=== PATIENT | female | born 1985 | race Caucasian/White ===

== ENCOUNTER 2016-11-23 16:26 | Observation (INO) | payer OTHER ==
[~2016-11-23] VITALS: Ht 149.9 cm; Wt 38.3 kg
[~2016-11-23 16:26] MED LIST: AMB10 PO; ASPEC325 PO; AZAT50TA17 PO; CLC100 PO; CPR500 PO; ENTOCORT PO; FRC PO; HUMIRA SC; HYD10 PO; MULT-506 PO; NORT50CA PO; OXYC-57 PO; OXYSR10 PO
--- NOTE | 2016-11-23 17:13 | EMERGENCY ROOM VISIT NOTE ---
ED Visit Note First contact with patient: 16:45 Patient evaluated with resident. 31 year presented to the emergency room for generalized chest pain, nausea, shortness of breath progressively worse for several weeks after starting a new antidepressant for her fibromyalgia. She is also noted to be on multiple other medications including nortriptyline for migraines. She does not report frequent or recurrent migraines at this juncture the last time her migraine medications were reportedly assessed for back when she was in high school over 10 years ago. She was given normal saline hydration and hypokalemia identified 2.8. Potassium subsequently replaced and CTA study was negative for PE. I am concerned that patient's medications may be interacting or potentially causing the rhythm disturbance. Admission arranged with [facility] hospitalist at 8: 30pm.
[2016-11-23] MEDS ORDERED: SODIUM CHLORIDE 0.9% 1000ML 1,000 ML IV SCH (17:15)
[2016-11-23] MEDS ORDERED: ADENOSINE IV SOLN 3 MG/ML 2 ML VIAL IV STA (17:23)
[2016-11-23] MEDS ORDERED: OPTIRAY 320 IV PRN (17:30)
[2016-11-23] MEDS ORDERED: BUPR75TA20 PO (17:33)
[2016-11-23] MEDS ORDERED: LIDO2SOL19 PO (17:33)
[2016-11-23] MEDS ORDERED: EFF75 PO (17:33)
[2016-11-23] MEDS ORDERED: ONDA4TAB10 SL (17:33)
[2016-11-23] MEDS ORDERED: FRCT/ PO (17:33)
[2016-11-23] MEDS ORDERED: ATV/1 PO (17:33)
[2016-11-23 17:45] LABS: EOS % 1.9 %; HEMATOCRIT 32.4 % (37-47); IG% 0.4 %; LYMPH % 30.2 %; LYMPH ABS # 0.81 K/uL (1.2-3.4); MEAN CELL VOLUME 112.5 fL (80-100); MEAN CORPUSCULAR HEMOGLOBIN 39.6 pg (25-34); MEAN CORPUSCULAR HGB CONC 35.2 g/dl (32-36); MEAN PLATELET VOLUME 9.2 fL (7.4-10.4); MONO % 4.9 %; NEUT % 62.6 %; PLATELET COUNT 507 K/uL (130-400); RED BLOOD COUNT 2.88 M/uL (4.2-5.4); WHITE BLOOD COUNT 2.68 K/uL (4.8-10.8)
[2016-11-23] MEDS ORDERED: HYDR5TAB57 PO ×2 (17:46)
[2016-11-23] MEDS ORDERED: NORT75CA PO (17:46)
[2016-11-23] MEDS ORDERED: BCPILLS PO (17:46)
[2016-11-23] MEDS ORDERED: CYAN100020 PO (17:46)
[2016-11-23] MEDS ORDERED: FLUC150T PO (17:46)
[2016-11-23] MEDS ORDERED: FOLI1TAB7 PO (17:46)
[2016-11-23] MEDS ORDERED: OXYC-164 PO (17:46)
[2016-11-23] MEDS ORDERED: FLUC10SU PO (17:46)
[2016-11-23] MEDS ORDERED: GABA-113 PO (17:46)
[2016-11-23] MEDS ORDERED: MAGN400T6 PO (17:46)
[2016-11-23] MEDS ORDERED: ZOLP10TA6 PO (17:46)
[2016-11-23] MEDS ORDERED: VALA500T60 PO (17:47)
[2016-11-23] MEDS ORDERED: POTA20TA13 PO (17:49)
[2016-11-23 17:53] LABS: INR 1.1 (0.9-1.1); PARTIAL THROMBOPLASTIN RATIO 0.9; PROTHROMBIN TIME (PATIENT) 11.5 SECONDS (9.0-12.0)
[2016-11-23] MEDS ORDERED: OMEP40CA PO (17:53)
[2016-11-23] MEDS ORDERED: DOCU-94 PO (17:53)
[2016-11-23] MEDS ORDERED: ADAL1KIT SC (17:53)
[2016-11-23] MEDS ORDERED: FLUD0.1T10 PO (17:54)
--- NOTE | 2016-11-23 18:04 | DIAGNOSTIC IMAGING REPORT ---
CHEST ONE VIEW PORTABLE HISTORY: Atypical chest pain, dyspnea COMPARISON: None. FINDINGS: The lungs are clear. Cardiac silhouette is normal in size. No pleural effusions. No pneumothorax. IMPRESSION: No acute process. Electronically signed by: Dusty Rouse M.D. 11/23/2016 6:02 PM Dictated Date/Time: 11/23/2016 6:01 PM
[2016-11-23 18:08] LABS: ALT/SGPT < 6 U/L (12-78); AST/SGOT 6 U/L (15-37); BLOOD UREA NITROGEN 4 mg/dl (7-18); BUN/CREATININE RATIO 6.1 (10-20); CALCIUM 8.2 mg/dl (8.5-10.1); CARBON DIOXIDE 30 mmol/L (21-32); CHLORIDE 104 mmol/L (98-107); CREATININE 0.68 mg/dl (0.60-1.20); GLUCOSE 84 mg/dl (70-99); POTASSIUM 2.8 mmol/L (3.5-5.1); SODIUM 142 mmol/L (136-145)
[2016-11-23 18:14] LABS: COMPLETE YES; TEAR DROP CELLS 1+
[2016-11-23 18:21] LABS: MAGNESIUM 2.1 mg/dl (1.8-2.4); THYROID STIMULATING HORMONE 0.769 uIu/ml (0.300-4.500)
[2016-11-23 18:25] LABS: ALB/GLOB RATIO 0.9 (0.9-2); ALKALINE PHOSPHATASE 59 U/L (45-117)
--- NOTE | 2016-11-23 18:28 | EMERGENCY ROOM VISIT NOTE ---
History First contact with patient: 16:46 Chief Complaint: CHEST PAIN Stated Complaint: CHEST PAIN Nursing Triage Summary: Chest pain, headaches for a couple weeks. Pt believes it is medicine related, started cymbalta, zoloft, and effexor a few weeks ago. Pt currently only taking wellbutrin and effexor. SOB. Feels like her heart is beating out of her chest. History of Present Illness The patient is a 31 year old female who presents to the Emergency Room with complaints of chest pain The pain started 2 weeks ago. It is left sided pain, usually felt as a pressure , but with exertion, the pain becomes sharp. There is some radiation to the left neck and associated symptoms include heart pounding, dyspnea, and weakness. Symptoms are alleviated with rest/stillness, or lying flat. In addition to exertion, patient claims pain is exacerbated on chest palpation, effortful bowel movement. It is not impacted by eating. There has been long standing nausea, but no associated diaphoresis or irregular heart beat noted. The course of chest pain has not progressed over the two weeks. 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 Patient's mother is concerned that the patient's chest pain related to medication switches Switched from Cymbalta to Zoloft (made her aggressive and combative) to Wellbutrin with Effexor added before [place] Patient has had long standing headaches. Diarrhea has been ongoing for 4 weeks, with blood in stool from previous rectal bleeding (large volume at previous admission, although no OR bleeding ween within the last week) No fever on URI symptoms. Never smoker, on Jolessa, no history of clots in lungs or legs, no long haul flights or long commutes. Review of Systems See HPI for pertinent positives and negatives. A total of ten systems were reviewed and were otherwise negative. 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 Surgical Problems: (1) History of bowel resection Social History Smoking Status: Never Smoker Current/Historical Medications Scheduled Adalimumab (Humira), 40 MG SC Q2WEEK Azathioprine (Imuran), 100 MG PO DAILY Bupropion (Wellbutrin), 75 MG PO BID Fluconazole (Diflucan), 150 MG PO MONTHLY Fludrocortisone Acetate (Florinef), 0.1 MG PO DAILY Folic Acid (Folvite), 0.5 MG PO DAILY Gabapentin (Neurontin), 300 MG PO DAILY Gabapentin (Neurontin), 600 MG PO HS Hydrocortisone (Cortef), 20 MG PO QAM Hydrocortisone (Cortef), 10 MG PO AFTERNOON Levonorgestrel & Eth Estradiol (Levora 0.-), 1 TAB PO DAILY Magnesium Oxide (Mag-Ox), 400 MG PO DAILY Multivitamin (Multivitamin), 1 TAB PO DAILY Nortriptyline Hcl (Pamelor), 75 MG PO HS Omeprazole (Prilosec), 40 MG PO DAILY Potassium Chloride Microencaps (Potassium Chloride Er), 20 MEQ PO DAILY Valacyclovir (Valtrex), 500 MG PO DAILY Venlafaxine Hcl (Effexor), 75 MG PO DAILY Scheduled PRN Acetamin/Butalbital/Caffeine (Fioricet), 2 TABS PO Q6H PRN for Pain Docusate Sodium (Colace), 100 MG PO UD PRN for Constipation Lidocaine Hcl (Mouth-Throat) (Lidocaine Viscous), 10 ML PO UD PRN for Pain Lorazepam (Ativan), 1 MG PO DAILY PRN for Anxiety Ondasetron Odt (Zofran Odt), 4 MG SL Q8 PRN for Nausea Oxycodone/Acetaminophen 5MG/325MG (Percocet 5MG/325MG), 1 TAB PO Q4H PRN for Moderate Pain Zolpidem Tartrate (Zolpidem Tartrate), 10 MG PO HS PRN for Sleep Allergies Coded Allergies: Prochlorperazine (Verified Adverse Reaction, Intermediate, aggressive behavior, 09/15/11) Antihistamines, Loratadine-type (Verified Adverse Reaction, PT BECOMES AGGRESSIVE, 09/15/11) Diphenhydramine (Verified Adverse Reaction, PT BECOMES AGGRESSIVE, 09/15/11 ) Promethazine (Verified Adverse Reaction, PT BECOMES AGGRESSIVE, 09/15/11) Physical Exam Vital Signs Date Time Temp Pulse Resp B/P Pulse Ox O2 Delivery O2 Flow Rate FiO2 11/23/16 20:49 126 11/23/16 20:03 37.1 137 17 108/73 100 11/23/16 16:47 140 11/23/16 16:35 100 Room Air 11/23/16 16:32 36.8 151 18 105/68 100 Room Air Physical Exam GENERAL: alert, anxious appearing, thin, sitting in bed, no acute distress, non- toxic HEAD: Normocephalic, atraumatic. EYES: PERRL, EOMI, normal conjunctiva OROPHARYNX: no exudate, no erythema, lips, buccal mucosa, and tongue normal and mucous membranes are dry NECK: supple, no nuchal rigidity, no adenopathy, non-tender LUNGS: Clear to auscultation. Normal chest wall mechanics, good air entry. No crepitations, crackles, or wheezes HEART: tachycardiac, regular rhythm, S1 normal and S2 normal, no murmurs, CHEST: Tenderness on chest palpation ABDOMEN: abdomen soft, non-tender, normo-active bowel sounds, no masses, no rebound or guarding. BACK: Back is symmetrical on inspection, no deformities, no midline tenderness, no CVA tenderness. SKIN: Warm, pink, dry. No erythema, rashes, or bruising. EXTREMITIES: Grossly normal. Moving all 4 limbs, strength 5/5. No pitting edema. Calves non tender. NEURO: Alert, Ox3. No focal deficits. Normal sensorium, cranial nerves II-XII grossly intact, normal speech. PSYCH: Mood and affect appropriate. Medical Decision & Procedures ER Provider Diagnostic Interpretation: CHEST ONE VIEW PORTABLE HISTORY: Atypical chest pain, dyspnea COMPARISON: None. FINDINGS: The lungs are clear. Cardiac silhouette is normal in size. No pleural effusions. No pneumothorax. IMPRESSION: No acute process. CHEST CTA for PULMONARY ARTERIES CT DOSE: 178.08 mGy.cm HISTORY: Atypical chest pain. Dyspnea. TECHNIQUE: Multiaxial CT images of the chest were performed following the intravenous administration of contrast to evaluate the pulmonary arteries. Maximal intensity projection images were also obtained. COMPARISON STUDY: Chest 11/23/2016. FINDINGS: There is a normal caliber thoracic aorta with no evidence for dissection. There is no evidence for pulmonary embolus. No pleural effusions. No pneumothorax. The liver and spleen are unremarkable. No mediastinal or hilar lymphadenopathy. The central airways are patent. The lungs are clear. IMPRESSION: No evidence for pulmonary embolus. Laboratory Results Test 11/23/16 00:00 11/23/16 17:25 Urine Opiates Screen NEG (NEG) Urine Methadone, Qualitative NEG (NEG) Urine Barbiturates POS (NEG) Urine Phencyclidine (PCP) Level NEG (NEG) Ur Amphetamine/Methamphetamine NEG (NEG) MDMA (Ecstasy) Screen NEG (NEG) Urine Benzodiazepines Screen NEG (NEG) Urine Cocaine Metabolite NEG (NEG) Urine Marijuana (THC) NEG (NEG) Immature Granulocyte % (Auto) 0.4 % White Blood Count 2.68 K/uL (4.8-10.8) Red Blood Count 2.88 M/uL (4.2-5.4) Hemoglobin 11.4 g/dL (12.0-16.0) Hematocrit 32.4 % (37-47) Mean Corpuscular Volume 112.5 fL (80-100) Mean Corpuscular Hemoglobin 39.6 pg (25-34) Mean Corpuscular Hemoglobin Concent 35.2 g/dl (32-36) Platelet Count 507 K/uL (130-400) Mean Platelet Volume 9.2 fL (7.4-10.4) Neutrophils (%) (Auto) 62.6 % Lymphocytes (%) (Auto) 30.2 % Monocytes (%) (Auto) 4.9 % Eosinophils (%) (Auto) 1.9 % Basophils (%) (Auto) 0.0 % Neutrophils # (Auto) 1.68 K/uL (1.4-6.5) Lymphocytes # (Auto) 0.81 K/uL (1.2-3.4) Monocytes # (Auto) 0.13 K/uL (0.11-0.59) Eosinophils # (Auto) 0.05 K/uL (0-0.5) Basophils # (Auto) 0.00 K/uL (0-0.2) Immature Granulocyte # (Auto) 0.01 K/uL (0.00-0.02) Macrocytosis PRESENT Tear Drop Cells 1+ Prothrombin Time 11.5 SECONDS (9.0-12.0) Prothromb Time International Ratio 1.1 (0.9-1.1) Activated Partial Thromboplast Time 24.0 SECONDS (21.0-31.0) Partial Thromboplastin Ratio 0.9 Magnesium Level 2.1 mg/dl (1.8-2.4) Total Bilirubin 0.2 mg/dl (0.2-1) Aspartate Amino Transf (AST/SGOT) 6 U/L (15-37) Alanine Aminotransferase (ALT/SGPT) < 6 U/L (12-78) Alkaline Phosphatase 59 U/L (45-117) Troponin I < 0.015 ng/ml (0-0.045) Total Protein 7.0 gm/dl (6.4-8.2) Albumin 3.4 gm/dl (3.4-5.0) Globulin 3.6 gm/dl (2.5-4.0) Albumin/Globulin Ratio 0.9 (0.9-2) Thyroid Stimulating Hormone (TSH) 0.769 uIu/ml (0.300-4.500) Medications Administered Medications (Trade) Dose Ordered Sig/Sivakumar Route Start Time Stop Time Status Last Admin Dose Admin Sodium Chloride (Nss 1000ml) 1,000 ml @ 500 mls/hr Q2H IV 11/23/16 17:15 11/23/16 22:25 DC 11/23/16 17:55 500 MLS/HR Potassium Chloride (Kcl 10 Meq / Wtr) 40 meq NOW STAT IV 11/23/16 18:37 11/23/16 18:38 DC 11/23/16 19:00 40 MEQ Potassium Chloride 20 meq 20 meq NOW STAT PO 11/23/16 18:37 11/23/16 18:38 DC 11/23/16 18:59 20 MEQ Sodium Chloride (Nss 1000ml) 1,000 ml @ 100 mls/hr Q10H IV 11/23/16 20:45 11/24/16 11:58 DC 11/24/16 08:35 100 MLS/HR Ondansetron HCl (Zofran Inj) 4 mg Q6H PRN IV 11/23/16 20:45 12/23/16 20:44 11/23/16 21:04 4 MG ECG Indication: chest pain Rate (beats per minute): 146 Rhythm: SVT Findings: T-wave inversion (Inferior), prolonged QT Comparison ECG Date: no prior available Medical Decision 31 year old female presented with chest The patient was evaluated in room A11. A complete history and physical exam was performed. Differential diagnoses includes but is not limited to acute coronary syndrome, myocardial infarction, pericarditis, pulmonary embolus, aortic dissection, pneumonia, pneumothorax, musculoskeletal, shingles, esophageal. EKG showed supraventricular tachycardia, with the t wave inversions in the inferolateral leads. Lab work was performed. CBC showed some leukopenia, anemia, and borderline elevated platelets. BMP showed hypokalemia at 2.8. LFTs and troponin were all within normal limits. CXR reported no acute process. Patient was updated of the results and re-assessed. Patient was given 30mg IV Toradol and supplementation of potassium was also administered with IV 1L normal saline. She was having ongoing chest pain, despite a slight improvement of heart rate in the 120s-130s. CT showed no evidence for pulmonary embolus Urine screen was positive for barbiturates only (part of her daily meds).. Likely diagnosis is medication-induced electrolyte imbalance. The case was discussed with [facility] hospitalist Dr. Hill, who was agreeable to assess the patient for admission Patient understands and agreeable with care plan. Impression Primary Impression: Chest pain Qualified Codes: R07.89 - Other chest pain Additional Impressions: Hypokalemia SVT (supraventricular tachycardia) Departure Information Dispostion Being Evaluated By Hospitalist Condition FAIR Referrals Casey Carvalho M.D. (PCP) Patient Instructions A Signature Page, My [employer]
[2016-11-23] MEDS ORDERED: POTASSIUM CHLORIDE 10 MEQ TABCR PO STA ×2 (18:37→22:54)
[2016-11-23] MEDS ORDERED: POTASSIUM CHLORIDE 10 MEQ / 100ML WTR IV STA (18:37)
[2016-11-23 18:41] LABS: BENZODIAZEPINE, URINE NEG (NEG); COCAINE,URINE NEG (NEG); PHENCYCLIDINE, URINE NEG (NEG)
--- NOTE | 2016-11-23 20:04 | DIAGNOSTIC IMAGING REPORT ---
CHEST CTA for PULMONARY ARTERIES CT DOSE: 178.08 mGy.cm HISTORY: Atypical chest pain. Dyspnea. TECHNIQUE: Multiaxial CT images of the chest were performed following the intravenous administration of contrast to evaluate the pulmonary arteries. Maximal intensity projection images were also obtained. COMPARISON STUDY: Chest 11/23/2016. FINDINGS: There is a normal caliber thoracic aorta with no evidence for dissection. There is no evidence for pulmonary embolus. No pleural effusions. No pneumothorax. The liver and spleen are unremarkable. No mediastinal or hilar lymphadenopathy. The central airways are patent. The lungs are clear. IMPRESSION: No evidence for pulmonary embolus. Electronically signed by: Dusty Rouse M.D. 11/23/2016 8:03 PM Dictated Date/Time: 11/23/2016 7:56 PM
[2016-11-23] MEDS: SODIUM CHLORIDE 0.9% 1000ML 1,000 ML IV SCH (20:45)
[2016-11-23] MEDS ORDERED: GABA-112 PO (21:00)
[2016-11-23] MEDS ORDERED: [UNRECOGNIZED DRUG - CODE] PO (21:00)
[2016-11-23] MEDS ORDERED: MULT-506 PO (21:00)
[2016-11-23] MEDS ORDERED: KETOROLAC TROMETHAMINE 30 MG/ML VIAL ONE (21:01)
[2016-11-23] MEDS: ONDANSETRON INJ 2 MG/ML 2 ML VIAL IV PRN (21:04)
[2016-11-23] MEDS ORDERED: LORAZEPAM 1 MG TAB PO PRN (21:15)
[2016-11-23] MEDS ORDERED: IV FLUIDS COMPLETED PRN (21:30)
[2016-11-23 21:54] VITALS: BP 110/76; PULSE 122; TEMP 36.9; O2SAT 100; Ht 149.9 cm; Wt 38.3 kg
--- NOTE | 2016-11-23 22:20 | History and Physical ---
History & Physical Date & Time of Service: Nov 23, 2016 at 21:52 Chief Complaint: Chest Pain Primary Care Physician: Naya Lewis D.O. History of Present Illness 31 year old female who presents to the ER with chest pain. Patient reports she has been experiencing chest pain for the past one month since starting Effexor. Patient has had multiple medication changes for fibromyalgia over the past several months. She reports she had been being teated with narcotics which were weaned off and she was place on Cymbalta. She reports she felt good while taking that medicine however it caused severe bloody diarrhea. Patient was then switched to Zoloft which caused her to be very aggressive. She was then placed on Effexor. She denies any GI side effects from the Effexor but she reports that since she started taking it she has had left sided chest pain. She reports the pain has been constant. At its worst she rates the pain #10/10. She reports the pain is worse when she walks and she can reproduce the pain with pressing the left side of her chest. She reports associated shortness of breath. She has had extreme fatigue. She reports nausea and poor appetite and a few episodes of vomiting. No hematemesis or coffee ground emesis. She has chronic diarrhea from Crohn's which has been at baseline. No bloody diarrhea. She has lightheadedness and dizziness with standing too quickly. No syncopal events. No fever or chills. She denies any urinary symptoms. In the ER, patient is found have K+ 2.8. D. Dimer was positive and CT chest was negative for PE. She was tachycardic in the 150s on arrival and HR is currently in the 120s after IVF. Troponin is negative and EKG does not show any acute ST changes. Patient was treated with potassium replacement and IVF. 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 Status: Chronic Surgical Problems: (1) History of bowel resection Permanent Comment: x 5 for Crohns Status: Chronic Family History FH: rheumatoid arthritis MOTHER Social History Smoking Status: Never Smoker Alcohol Use: none Immunizations History of Influenza Vaccine: Yes Influenza Vaccine Date: Oct 26, 2016 History of Tetanus Vaccine?: Yes Tetanus Immunization Date: Jul 16, 2016 History of Pneumococcal: Yes Pneumococcal Date: Aug 25, 2010 Allergies Coded Allergies: Prochlorperazine (Verified Adverse Reaction, Intermediate, aggressive behavior, 09/15/11) Antihistamines, Loratadine-type (Verified Adverse Reaction, PT BECOMES AGGRESSIVE, 09/15/11) Diphenhydramine (Verified Adverse Reaction, PT BECOMES AGGRESSIVE, 09/15/11 ) Promethazine (Verified Adverse Reaction, PT BECOMES AGGRESSIVE, 09/15/11) Home Medications Scheduled Adalimumab (Humira), 40 MG SC Q2WEEK Azathioprine (Imuran), 100 MG PO DAILY Bupropion (Wellbutrin), 75 MG PO BID Fluconazole (Diflucan), 150 MG PO MONTHLY Fludrocortisone Acetate (Florinef), 0.1 MG PO DAILY Folic Acid (Folvite), 0.5 MG PO DAILY Gabapentin (Neurontin), 300 MG PO DAILY Gabapentin (Neurontin), 600 MG PO HS Hydrocortisone (Cortef), 20 MG PO QAM Hydrocortisone (Cortef), 10 MG PO AFTERNOON Levonorgestrel & Eth Estradiol (Levora 0.15/-), 1 TAB PO DAILY Magnesium Oxide (Mag-Ox), 400 MG PO DAILY Multivitamin (Multivitamin), 1 TAB PO DAILY Nortriptyline Hcl (Pamelor), 75 MG PO HS Omeprazole (Prilosec), 40 MG PO DAILY Potassium Chloride Microencaps (Potassium Chloride Er), 20 MEQ PO DAILY Valacyclovir (Valtrex), 500 MG PO DAILY Venlafaxine Hcl (Effexor), 75 MG PO DAILY Scheduled PRN Acetamin/Butalbital/Caffeine (Fioricet), 2 TABS PO Q6H PRN for Pain Docusate Sodium (Colace), 100 MG PO UD PRN for Constipation Lidocaine Hcl (Mouth-Throat) (Lidocaine Viscous), 10 ML PO UD PRN for Pain Lorazepam (Ativan), 1 MG PO DAILY PRN for Anxiety Ondasetron Odt (Zofran Odt), 4 MG SL Q8 PRN for Nausea Oxycodone/Acetaminophen 5MG/325MG (Percocet 5MG/325MG), 1 TAB PO Q4H PRN for Moderate Pain Zolpidem Tartrate (Zolpidem Tartrate), 10 MG PO HS PRN for Sleep Review of Systems 10 point review of systems was completed with the pertinent positives and negatives noted per the HPI Physical Exam Vital Signs Date Time Temp Pulse Resp B/P Pulse Ox O2 Delivery O2 Flow Rate FiO2 11/23/16 21:43 37.1 121 16 116/75 99 11/23/16 21:07 121 16 116/75 99 Room Air 11/23/16 20:49 126 11/23/16 20:03 37.1 137 17 108/73 100 11/23/16 16:47 140 11/23/16 16:35 100 Room Air 11/23/16 16:32 36.8 151 18 105/68 100 Room Air General Appearance: no apparent distress Head: normocephalic Eyes: normal inspection ENT: hearing grossly normal Neck: supple, no JVD Respiratory/Chest: lungs clear, normal breath sounds, no respiratory distress, + pertinent finding (left sided chest wall tenderness) Cardiovascular: no edema, no murmur, + tachycardia (regular rhythm) Abdomen/GI: normal bowel sounds, non tender, soft Extremities/Musculoskelatal: normal inspection, no calf tenderness Neurologic/Psych: no motor/sensory deficits, alert, normal mood/affect Skin: normal color, warm/dry Diagnostics Laboratory Results Results Past 24 Hours Test 11/23/16 00:00 11/23/16 17:25 Range/Units Urine Opiates Screen NEG NEG Urine Methadone, Qualitative NEG NEG Urine Barbiturates POS NEG Urine Phencyclidine (PCP) Level NEG NEG Ur Amphetamine/Methamphetamine NEG NEG MDMA (Ecstasy) Screen NEG NEG Urine Benzodiazepines Screen NEG NEG Urine Cocaine Metabolite NEG NEG Urine Marijuana (THC) NEG NEG White Blood Count 2.68 4.8-10.8 K/uL Red Blood Count 2.88 4.2-5.4 M/uL Hemoglobin 11.4 12.0-16.0 g/dL Hematocrit 32.4 37-47 % Mean Corpuscular Volume 112.5 80-100 fL Mean Corpuscular Hemoglobin 39.6 25-34 pg Mean Corpuscular Hemoglobin Concent 35.2 32-36 g/dl Platelet Count 507 130-400 K/uL Mean Platelet Volume 9.2 7.4-10.4 fL Neutrophils (%) (Auto) 62.6 % Lymphocytes (%) (Auto) 30.2 % Monocytes (%) (Auto) 4.9 % Eosinophils (%) (Auto) 1.9 % Basophils (%) (Auto) 0.0 % Neutrophils # (Auto) 1.68 1.4-6.5 K/uL Lymphocytes # (Auto) 0.81 1.2-3.4 K/uL Monocytes # (Auto) 0.13 0.11-0.59 K/uL Eosinophils # (Auto) 0.05 0-0.5 K/uL Basophils # (Auto) 0.00 0-0.2 K/uL RDW Standard Deviation 61.8 36.4-46.3 fL RDW Coefficient of Variation 15.4 11.5-14.5 % Immature Granulocyte % (Auto) 0.4 % Immature Granulocyte # (Auto) 0.01 0.00-0.02 K/uL Macrocytosis PRESENT Tear Drop Cells 1+ Prothrombin Time 11.5 9.0-12.0 SECONDS Prothromb Time International Ratio 1.1 0.9-1.1 Activated Partial Thromboplast Time 24.0 21.0-31.0 SECONDS Partial Thromboplastin Ratio 0.9 Sodium Level 142 136-145 mmol/L Potassium Level 2.8 3.5-5.1 mmol/L Chloride Level 104 98-107 mmol/L Carbon Dioxide Level 30 21-32 mmol/L Anion Gap 8.0 3-11 mmol/L Blood Urea Nitrogen 4 7-18 mg/dl Creatinine 0.68 0.60-1.20 mg/dl Est Creatinine Clear Calc Drug Dose 71.4 ml/min Estimated GFR () 134.1 Estimated GFR (Non- 115.7 BUN/Creatinine Ratio 6.1 10-20 Random Glucose 84 70-99 mg/dl Calcium Level 8.2 8.5-10.1 mg/dl Magnesium Level 2.1 1.8-2.4 mg/dl Total Bilirubin 0.2 0.2-1 mg/dl Aspartate Amino Transf (AST/SGOT) 6 15-37 U/L Alanine Aminotransferase (ALT/SGPT) < 6 12-78 U/L Alkaline Phosphatase 59 45-117 U/L Troponin I < 0.015 0-0.045 ng/ml Total Protein 7.0 6.4-8.2 gm/dl Albumin 3.4 3.4-5.0 gm/dl Globulin 3.6 2.5-4.0 gm/dl Albumin/Globulin Ratio 0.9 0.9-2 Thyroid Stimulating Hormone (TSH) 0.769 0.300-4.500 uIu/ml Diagnostic Radiology CTA CHEST IMPRESSION: No evidence for pulmonary embolus. CXR IMPRESSION: No acute process. Impression Assessment and Plan CHEST PAIN, TACHYCARDIA - admit to tele - low suspicion for cardiac source - initial troponin negative, EKG without acute ischemic changes; will defer further cardiac work up at this time - ? musculoskeletal vs. GERD vs. anxiety - CTA chest negative for PE - HR improving with IVF - tachycardia could be due to dehydration from poor PO intake HYPOKALEMIA - likely due to GI loss from chronic diarrhea from Crohn's - Mg+ noted to be WNL - replace K+, follow up labs in AM ANXIETY, FIBROMYALGIA - continue home meds for now - a majority of patient's complaints could be anxiety driven - has been tried on a variety of meds over the past several months - psych consult ADRENAL INSUFFICIENCY - continue hydrocortisone and Florinef CROHNS DISEASE - appears to be stable and at baseline - on Humira and Imuran LEUKOPENIA - possibly medication induced - follow CBC as an outpatient DVT PROPHYLAXIS - SCDs DISPO - The patient will be placed as observation status for now until further work up is complete. ADDENDUM: This is a 31 year old female with PMH of Crohn's disease with multiple surgeries and bowel resections, fibromyalgia - she was using narcotics for her fibromyalgia for years, and then switched recently to Cymbalta - she said it was working, but caused her to have bloody diarrhea; so this was then switched to Zoloft, which did not work. She is now on Effexor, but states it causes her chest pain, which she is in for now. Pain improved while in the ER. gen: +anxious, +tearful cvs: +tachycardia, +s1, s2, no murmurs lungs: cta b/l, no wheezing abd: soft, NT ext: no edema Plan: give IVFs, replace K, recheck potassium in AM psych consult for medication reconciliation VTE Prophylaxis VTE Risk Assessment Done? Y/N: Yes Risk Level: Low
[2016-11-23] MEDS ORDERED: NURSING VERBAL MED ORDER ONE (22:30)
[2016-11-23] MEDS: KETOROLAC TROMETHAMINE 15 MG/ML VIAL IV PRN (22:31)
[2016-11-23] MEDS: ZOLPIDEM TARTRATE 10 MG TAB PO PRN (22:34)
[2016-11-23] MEDS: GABAPENTIN 600 MG TAB PO SCH (22:36)
[2016-11-23] MEDS: NORTRIPTYLINE HCL 25 MG CAP PO SCH (22:37)
[2016-11-23] MEDS: BCP'S~ORDER AWAITING ACTION SCH (23:37)
[2016-11-23 23:59] VITALS: O2SAT 100
[2016-11-24] VITALS (11 sets, daily range): BP systolic 95–117; BP diastolic 59–73; PULSE 110–149; TEMP 36.4–37; O2SAT 97–100
[2016-11-24] MEDS: KETOROLAC TROMETHAMINE 15 MG/ML VIAL IV PRN ×2 (06:17→16:07)
[2016-11-24 07:47] LABS: HEMATOCRIT 25.8 % (37-47); MEAN CELL VOLUME 113.7 fL (80-100); MEAN CORPUSCULAR HEMOGLOBIN 39.6 pg (25-34); MEAN CORPUSCULAR HGB CONC 34.9 g/dl (32-36); MEAN PLATELET VOLUME 8.7 fL (7.4-10.4); PLATELET COUNT 386 K/uL (130-400); RED BLOOD COUNT 2.27 M/uL (4.2-5.4); WHITE BLOOD COUNT 2.83 K/uL (4.8-10.8)
[2016-11-24] MEDS: BCP'S~ORDER AWAITING ACTION SCH (08:00)
[2016-11-24 08:21] LABS: CREATININE 0.58 mg/dl (0.60-1.20)
[2016-11-24 08:22] LABS: BUN/CREATININE RATIO 5.2 (10-20); CALCIUM 8.1 mg/dl (8.5-10.1); POTASSIUM 3.6 mmol/L (3.5-5.1)
[2016-11-24] MEDS: SODIUM CHLORIDE 0.9% 1000ML 1,000 ML IV SCH (08:35)
[2016-11-24] MEDS: AZATHIOPRINE 50 MG TAB PO SCH (08:36)
[2016-11-24] MEDS: HYDROCORTISONE 10 MG TAB PO SCH ×2 (08:37→14:41)
[2016-11-24] MEDS: GABAPENTIN 300 MG CAP PO SCH (08:37)
[2016-11-24] MEDS: MAGNESIUM OXIDE 400 MG TAB PO SCH (08:37)
[2016-11-24] MEDS: FLUDROCORTISONE ACETATE 0.1 MG TAB PO SCH (08:38)
[2016-11-24] MEDS: MULTIVITAMIN TAB PO SCH (08:38)
[2016-11-24] MEDS: PANTOprazole SOD 40 MG TAB PO SCH (08:39)
[2016-11-24] MEDS ORDERED: VENLAFAXINE HCL 50 MG TAB PO SCH (09:00)
[2016-11-24] MEDS: SODIUM CHLORIDE 0.45% 1000ML 1,000 ML IV SCH ×2 (12:33→23:00)
[2016-11-24] MEDS ORDERED: BUTALBITAL/ACETAMIN/CAFFEINE TAB PO PRN (13:15)
[2016-11-24] MEDS ORDERED: LORAZEPAM 1 MG TAB PO PRN (14:15)
--- NOTE | 2016-11-24 15:13 | CONSULTATION REPORT ---
DATE OF CONSULTATION: 11/24/2016 DATE OF CONSULTATION: 11/24/2016. IDENTIFYING DATA: Selina Rodas is a 31-year-old woman from [place], [place], who reported to the Emergency Room with chest pain, palpitations, weakness and diarrhea. We are consulted to evaluate depression. Information is gathered from the patient and the electronic medical record and both considered to be reliable. CHIEF COMPLAINT: "I don't know what to do." HISTORY OF PRESENT ILLNESS: Selina Rodas is a 31-year-old woman with medical history significant for Loudoun's disease, B12 deficiency, Crohn's disease, fibromyalgia, anxiety and depression who reports that she has had increasing troubles with her Crohn's disease, specifically diarrhea for many months and has not been able to work since August of 2016. She is followed by her PCP, Dr. Lewis in [place] who has been making medication adjustments. The patient was recently on Cymbalta for abdominal pain and mood, but the patient developed severe diarrhea including bloody diarrhea and so on 11/18/2016 she was switched from Cymbalta to Effexor. She has had a recent trial of Zoloft which made her aggressive prior to starting on the Effexor. She presented to the Emergency Room with chest pain that she estimated that has been going on for about the last month and correlates that with the Effexor. She reported in the ER that the pain was constant, rated 10/10 and was reproducible with pressure. She also reports extreme fatigue, shortness of breath, poor appetite, nausea and vomiting. In addition, the patient was started on Wellbutrin on Wednesday, which she has been taking at 75 mg b.i.d. She admits that her mood has been "awful, frustrated". She says that she goes through times when she feels emotionally stable but then as she feels more anxious or depressed or her medical conditions worsen she feels anxious like she is feeling "crazy" and does not like to be alone. She denies that her mood has ever worsened to the point of suicidality. Her appetite has been down and she notes a small amount of unspecified weight loss. She does have crying spells. She is sleeping 5 or 6 hours at night, but has had chronic insomnia and takes Ambien for that. She notes that she has been isolating more recently, not wanting to socialize with people because she is in pain. She denies that she has ever experienced any thought disordered symptoms including auditory or visual hallucinations. She reports racing worried thoughts that she has had for years and when she is sick and isolating at home she tends to have nothing to do but lay in bed and worry. She denies that she experienced acute panic attacks but does have times when her heart rate is elevated. This has been worse recently on the psychiatric medication changes. She denies any symptoms of eating disordered behaviors. She does have some history of self-injurious behaviors, specifically punching herself. CURRENT MEDICATIONS: 1. Neurontin 600 mg at bedtime and 300 mg a.m. 2. Nortriptyline 75 mg at bedtime. 3. Cortef 10 mg daily at 1400. 4. Azathioprine 100 mg daily. 5. Wellbutrin IR 75 mg b.i.d. 6. Florinef 0.1 mg daily. 7. Folic acid 0.5 mg daily. 8. Cortef 20 mg q.a.m. 9. Magnesium oxide 400 mg daily. 10. Multivitamin 1 tab daily. 11. Valtrex 500 mg daily. 12. Effexor-IR 75 mg daily. 13. Protonix 40 mg q.a.m. 14. Ambien 10 mg at bedtime p.r.n. insomnia. 15. Ativan 1 mg daily p.r.n. anxiety. 16. Toradol 15 mg q. 6 hours p.r.n. pain. PAST PSYCHIATRIC HISTORY: The patient denies that she has ever seen a psychiatric professional. She has never been hospitalized for mental health reasons nor has she ever made a suicide attempt. She denies any evidence of violence to self or others in the last 6 months. PRIOR MEDICATION TRIALS: 1. Cymbalta -- bloody diarrhea. 2. Zoloft -- aggressiveness. ACCESS TO GUNS: Denies. ALLERGIES: 1. ANTIHISTAMINES -- AGGRESSION. 2. COMPAZINE -- CANNOT BREATHE. 3. PHENERGAN -- AGGRESSION. PAST MEDICAL HISTORY: 1. Crohn's disease. 2. Loudoun's disease. 3. B12 deficiency. 4. Fibromyalgia. 5. Migraines. 6. Remote history of a head injury in high school without sequelae. Denies history for seizures. TOBACCO USE -- nonsmoker. FAMILY HISTORY: Denies for psychiatric issues, substance use or suicide. Mother and sister have migraines. Mother has nephrolithiasis. SUBSTANCE USE HISTORY: The patient denies the use of alcohol, street drugs, organic substances, inhalants, abuse of over the counter medicines or prescription medicines now or at any time in the past. PERSONAL HISTORY: The patient grew up locally. She is a high school graduate. She has 2 years of education toward her medical assistance and also 3 semesters at [email or web address]. 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 She has not worked since August. She has been since 2008, they have no children. She does consider herself to be a spiritual individual. There are no legal concerns. Psychological trauma history is denied. She lives with her and her cat in [place]. MENTAL STATUS EXAMINATION: Slight appearing woman with well coifed hair, sitting in her hospital bed with her friend Miguel Ángel at bedside. She is alert and cooperative with the interview. She makes good eye contact. Motor behavior is unremarkable. Speech is of normal rate, volume, and tone. Affect is anxious and occasionally tearful. Mood is depressed and anxious. Thought process is organized and goal directed. She denies thought disorder in the form of hallucinations or delusions. She denies thoughts, plans, or intent to harm herself or anybody else. Today, she is fully oriented. Memory functions are intact. Fund of knowledge is intact. Intelligence is estimated to be average. Insight and judgment are fair. VITAL SIGNS: Temp 36.8, pulse 149, respirations 22, blood pressure 107/73, pulse ox 100% on room air. LABORATORIES: 1. CBC -- notable for WBCs low 2.83, RBCs low 2.27, hemoglobin and hematocrit low at 9.0 on 25.8, MCV elevated 113.7, MCH 39.6. 2. Chem profile -- notable for sodium elevated at 147, chloride 111, calcium low 8.1. 3. TSH -- within normal limits at 0.769. 4. Toxicology -- positive for barbiturates. 5. Coag studies -- within normal limits. IMAGIN. Chest thorax CTA -- no evidence for PE. 2. Chest x-ray - impression no acute process. REVIEW OF SYSTEMS: Positive for complaints of diarrhea, abdominal pain, anxiety and depression. PHYSICAL EXAMINATION: Exam performed by ADELA White has been reviewed and accepted. IMPRESSION: A 31-year-old woman admitted with chest pain, diarrhea and tachycardia. We are consulted to evaluate depression. Unfortunately, she has a complex picture with all of her GI needs, using multiple psychiatric medications. By my estimation, she started Wellbutrin on Wednesday and Effexor about November 18. Both of these can cause elevations in blood pressure and heart rate. She experiences chronic anxiety and so I am going to suggest at this point we discontinue Wellbutrin as this may have contributed to her sense of chest pain and elevated heart rate on admission. Effexor is a good medication and will take off several blocks including mood, anxiety and pain. She continues to have diarrhea and it is difficult for me to tell at this time whether she is having side effects to the serotonin stimulated by the Effexor or whether this is an exacerbation of her Crohn's disease. Nonetheless, I will reduce the Effexor to 37.5 mg and if this is a side effect to the medicines hopefully it will stabilize. She is on nortriptyline and has been long-term for her migraines and I suggest this be continued. She has been trying to find a psychiatric provider without success. We at [facility] have multiple providers who accept her insurance and so will have the liaison nurse facilitate a referral there. It will be important that her psychiatric provider and her GI provider coordinate care. She notes that she gets increasingly anxious here in the hospital and her Ativan has been ordered and should be continued. DIAGNOSES: 1. Depressive disorder, not otherwise specified. Differential includes major depressive disorder recurrent, mood disorder related to medical condition (Crohn's disease), adjustment disorder with depressed and anxious mood. 2. Generalized anxiety disorder. 3. Medical conditions as above. PLAN: Has been reviewed with Dr. Kaela Ortega. 1. Depression/anxiety. -- Discontinue Wellbutrin as this may have contributed to elevated heart rate and chest pain. -- Decrease Effexor to 37.5 mg in the event her diarrhea is being exacerbated as a side effect of this medication. If diarrhea stabilizes, would slowly titrate the Effexor to target pain, anxiety and mood. -- Plan B could include discontinuing Effexor in favor of increasing dosage of nortriptyline to help treat anxiety, mood and pain, but she is a very small person and may experience negative side effects. -- Continue Ativan 1 mg daily for anxiety p.r.n. -- Facilitate outpatient psychiatric appointment at [facility]. We thank you for allowing us to participate in this woman's care. BABAR
--- NOTE | 2016-11-24 19:30 | Progress Note ---
Medicine Progress Note Date & Time of Visit: Nov 24, 2016 at 19:29. Subjective Patient reports having intermittent ongoing chest wall pain that is worse with deep breathing and does not radiate beyond one tender area beneath her left breast. No overnight events noted. No melena/hematochezia. Has diarrhea but reports it is chronic. Complains of having a migraine SUBRAMANIAN and requesting fiorcet. Visitor present at the bedside. Objective Last 8 Hrs Date Time Temp Pulse Resp B/P Pulse Ox O2 Delivery O2 Flow Rate FiO2 11/24/16 16:18 99 Room Air 11/24/16 15:36 36.9 122 16 95/63 99 Room Air 11/24/16 12:26 100 Room Air Physical Exam: GENERAL: Patient is in no acute distress. HEENT: No acute trauma, normocephalic, mucous membranes moist, no nasal congestion, no scleral icterus. NECK: No stridor, trachea is midline. LUNGS: Clear to auscultation bilaterally, no wheeze, no rhonchi, breath sounds equal. HEART: Without murmurs gallops or rubs, regular rate and rhythm. + left chest wall tenderness to palpation in one spot below left breast ABDOMEN: Soft, nontender, bowel sounds positive; patient reports chronic tenderness to palpation in bilateral lower quadrants; + abdominal scar EXTREMITIES: No cyanosis or edema NEUROLOGIC: Oriented x 3, no acute motor or sensory deficits, no focal weakness. SKIN: No rash, no jaundice, no diaphoresis. Laboratory Results: Last 24 Hours Test 11/24/16 07:30 White Blood Count 2.83 K/uL Red Blood Count 2.27 M/uL Hemoglobin 9.0 g/dL Hematocrit 25.8 % Mean Corpuscular Volume 113.7 fL Mean Corpuscular Hemoglobin 39.6 pg Mean Corpuscular Hemoglobin Concent 34.9 g/dl RDW Standard Deviation 62.9 fL RDW Coefficient of Variation 15.5 % Platelet Count 386 K/uL Mean Platelet Volume 8.7 fL Sodium Level 147 mmol/L Potassium Level 3.6 mmol/L Chloride Level 111 mmol/L Carbon Dioxide Level 27 mmol/L Anion Gap 9.0 mmol/L Blood Urea Nitrogen 3 mg/dl Creatinine 0.58 mg/dl Est Creatinine Clear Calc Drug Dose 89.7 ml/min Estimated GFR () 141.4 Estimated GFR (Non- 122.0 BUN/Creatinine Ratio 5.2 Random Glucose 91 mg/dl Calcium Level 8.1 mg/dl Date/Time Source Procedure Growth Status 11/24/16 16:30 Stool C.difficile Toxin B Gene (PCR) - Final No C. difficile toxin B gene detected Complete Assessment & Plan CHEST PAIN, TACHYCARDIA: -remains sinus tach on monitor -low suspicion for cardiac cause, initial CMs negative, EKG without acute ischemic changes, remains unchanged on repeat EKGs -chest pain is reproducible and pinpoint beneath left breast, most likely musculoskeletal/intercostal -CTA chest negative for PE -continued on IV fluids as thoughts that tachycardia could be due to dehydration from poor PO intake and diarrhea HYPOKALEMIA: -likely due to GI loss from chronic diarrhea from Crohn's -Mg+ noted to be WNL -replete and recheck HYPERNATREMIA: -likely iatrogenic, switch IV fluids to half NS ANXIETY, FIBROMYALGIA: -continue home meds for now -a majority of patient's complaints could be anxiety driven -has been tried on a variety of meds over the past several months without much success due to various adverse effects/intolerances -Psych consulted; bupropion stopped ADRENAL INSUFFICIENCY: -continue hydrocortisone and Florinef CROHNS DISEASE: -appears to be stable and at baseline -on Humira and Imuran -patient reports ongoing diarrhea but reports it is chronic and no worse than baseline LEUKOPENIA: -possibly medication induced, or related to possible infection -will follow CBC MACROCYTIC ANEMIA: -possibly dilutional -patient denies any melena or hematochezia -check iron studies, B12, folate Current Inpatient Medications: Current Inpatient Medications Medications (Trade) Dose Ordered Sig/Sivakumar Route Start Time Stop Time Status Last Admin Dose Admin Ioversol (Optiray 320) 111 ml UD PRN IV 11/23/16 17:30 11/27/16 17:29 Acetaminophen (Tylenol Tab) 650 mg Q4H PRN PO 11/23/16 20:45 12/23/16 20:44 Ondansetron HCl (Zofran Inj) 4 mg Q6H PRN IV 11/23/16 20:45 12/23/16 20:44 11/23/16 21:04 4 MG Ketorolac Tromethamine (Toradol Inj) 15 mg Q6H PRN IV 11/23/16 21:00 1/14/17 20:59 11/24/16 16:07 15 MG Azathioprine (Imuran Tab) 100 mg DAILY PO 11/24/16 09:00 12/24/16 08:59 11/24/16 08:36 100 MG Fludrocortisone Acetate (Florinef Tab) 0.1 mg DAILY PO 11/24/16 09:00 12/24/16 08:59 11/24/16 08:38 0.1 MG Folic Acid (Folvite Tab) 0.5 mg DAILY PO 11/24/16 09:00 12/24/16 08:59 11/24/16 08:39 0.5 MG Gabapentin (Neurontin Tab) 600 mg HS PO 11/24/16 21:00 12/24/16 20:59 11/23/16 22:36 600 MG Gabapentin (Neurontin Cap) 300 mg DAILY PO 11/24/16 09:00 12/24/16 08:59 11/24/16 08:37 300 MG Hydrocortisone (Cortef Tab) 10 mg DAILY@1400 PO 11/24/16 14:00 12/24/16 13:59 11/24/16 14:41 10 MG Hydrocortisone (Cortef Tab) 20 mg QAM PO 11/24/16 09:00 12/24/16 08:59 11/24/16 08:37 20 MG Magnesium Oxide (Mag-Ox Tab) 400 mg DAILY PO 11/24/16 09:00 12/24/16 08:59 11/24/16 08:37 400 MG Multivitamins (Multivitamin Tab) 1 tab DAILY PO 11/24/16 09:00 12/24/16 08:59 11/24/16 08:38 1 TAB Nortriptyline HCl (Pamelor Cap) 75 mg HS PO 11/24/16 21:00 12/24/16 20:59 11/23/16 22:37 75 MG Valacyclovir HCl (Valtrex Tab) 500 mg DAILY PO 11/24/16 09:00 11/26/16 08:59 11/24/16 08:37 500 MG Miscellaneous Information (Order Awaiting Action) 1 ea QS N/A 11/24/16 00:00 12/24/16 00:00 Pantoprazole Sodium (Protonix Tab) 40 mg QAM PO 11/24/16 09:00 12/24/16 08:59 11/24/16 08:39 40 MG Miscellaneous (Iv Fluids Completed) 1 ea PRN PRN N/A 11/23/16 21:30 11/23/17 21:29 Zolpidem Tartrate 10 mg 10 mg HS PRN PO 11/23/16 22:30 12/23/16 22:29 11/23/16 22:34 10 MG Sodium Chloride (1/2 Nss 1000ml) 1,000 ml @ 100 mls/hr Q10H IV 11/24/16 12:00 12/24/16 11:59 11/24/16 12:33 100 MLS/HR Acetaminophen/ Butalbital/ Caffeine (Fioricet Tab) 1 tab Q4H PRN PO 11/24/16 13:15 12/24/16 13:14 11/24/16 14:41 1 TAB Venlafaxine HCl (effeXOR EXTENDED REL CAP) 37.5 mg QAM PO 11/25/16 09:00 12/25/16 08:59 Lorazepam (Ativan Tab) 1 mg BID PRN PO 11/24/16 14:15 12/24/16 14:14 Enteral Nutritional Formula (Boost Breeze Nutritional Drink) 1 box BIDM PO 11/24/16 16:45 12/24/16 16:44 Potassium Chloride (Klor-Con Tab) 20 meq BID PO 11/24/16 21:00 12/24/16 20:59
[2016-11-24] MEDS: BOOST BREEZE NUTRITION DRINK 1 BOX PO SCH (20:13)
[2016-11-24] MEDS: ZOLPIDEM TARTRATE 10 MG TAB PO PRN (20:54)
[2016-11-24] MEDS: GABAPENTIN 600 MG TAB PO SCH (20:55)
[2016-11-24] MEDS: POTASSIUM CHLORIDE 20 MEQ TABCR PO SCH (20:55)
[2016-11-24] MEDS: NORTRIPTYLINE HCL 25 MG CAP PO SCH (20:56)
[2016-11-25] VITALS (9 sets, daily range): BP systolic 92–116; BP diastolic 61–77; PULSE 108–133; TEMP 36.5–37; O2SAT 97–100
[2016-11-25 06:20] LABS: HEMATOCRIT 27.2 % (37-47); MEAN CELL VOLUME 112.4 fL (80-100); MEAN CORPUSCULAR HEMOGLOBIN 38.4 pg (25-34); MEAN CORPUSCULAR HGB CONC 34.2 g/dl (32-36); PLATELET COUNT 426 K/uL (130-400); RED BLOOD COUNT 2.42 M/uL (4.2-5.4); WHITE BLOOD COUNT 2.64 K/uL (4.8-10.8)
[2016-11-25 06:52] LABS: BUN/CREATININE RATIO 4.8 (10-20); CALCIUM 8.1 mg/dl (8.5-10.1); CREATININE 0.52 mg/dl (0.60-1.20); POTASSIUM 3.2 mmol/L (3.5-5.1)
[2016-11-25] MEDS: BCP'S~ORDER AWAITING ACTION SCH ×4 (08:00→19:22)
[2016-11-25] MEDS: LACTOBACILLUS ACIDOPHILUS (FLORANEX) TAB PO SCH ×3 (08:08→18:45)
[2016-11-25] MEDS: PANTOprazole SOD 40 MG TAB PO SCH (08:09)
[2016-11-25] MEDS: MULTIVITAMIN TAB PO SCH (08:09)
[2016-11-25] MEDS: HYDROCORTISONE 10 MG TAB PO SCH ×2 (08:09→14:22)
[2016-11-25] MEDS: AZATHIOPRINE 50 MG TAB PO SCH (08:10)
[2016-11-25] MEDS: MAGNESIUM OXIDE 400 MG TAB PO SCH (08:10)
[2016-11-25] MEDS: FLUDROCORTISONE ACETATE 0.1 MG TAB PO SCH (08:11)
[2016-11-25] MEDS: VENLAFAXINE HCL XR 37.5 MG CAPXR PO SCH (08:11)
[2016-11-25] MEDS: GABAPENTIN 300 MG CAP PO SCH (08:12)
[2016-11-25] MEDS: POTASSIUM CHLORIDE 20 MEQ TABCR PO SCH ×2 (08:12→19:51)
[2016-11-25] MEDS: BOOST BREEZE NUTRITION DRINK 1 BOX PO SCH ×2 (08:13→18:39)
[2016-11-25] MEDS: ONDANSETRON INJ 2 MG/ML 2 ML VIAL IV PRN (08:29)
[2016-11-25] MEDS: SODIUM CHLORIDE 0.45% 1000ML 1,000 ML IV SCH ×2 (08:30→18:40)
[2016-11-25] MEDS: KETOROLAC TROMETHAMINE 15 MG/ML VIAL IV PRN ×3 (08:30→20:37)
[2016-11-25] MEDS ORDERED: POTASSIUM CHLORIDE 20 MEQ TABCR PO ONE (09:34)
[2016-11-25] MEDS: ACETAMINOPHEN 325 MG TAB PO PRN ×2 (14:26→18:44)
[2016-11-25 16:26] LABS: URINE APPEARANCE CLEAR (CLEAR); URINE BILIRUBIN NEG (NEG); URINE COLOR YELLOW; URINE NITRITE NEG (NEG); URINE PH 6.5 (4.5-7.5); URINE SPECIFIC GRAVITY 1.001 (1.000-1.030); UROBILINOGEN NEG (NEG)
[2016-11-25 16:27] LABS: MANUAL MICROSCOPIC REQUIRED? NO; REVIEW REQ? NO
--- NOTE | 2016-11-25 16:59 | Progress Note ---
Medicine Progress Note Date & Time of Visit: Nov 25, 2016 at 16:58. Subjective Patient reports feeling very tired, drowsy, and weak and occasionally "out of it "; reports the diarrhea has gotten worse again. Denies any blood. No overnight events noted. No N/V. Chest pain is still present and worse with deep breathing/ exertion or palpation. Objective Last 8 Hrs Date Time Temp Pulse Resp B/P Pulse Ox O2 Delivery O2 Flow Rate FiO2 11/25/16 15:19 36.8 119 18 102/64 99 Room Air 11/25/16 12:00 Room Air 11/25/16 11:46 37.0 133 16 97/63 97 Room Air Physical Exam: GENERAL: Patient is in no acute distress. HEENT: No acute trauma, normocephalic, mucous membranes moist, no nasal congestion, no scleral icterus. NECK: No stridor, trachea is midline. LUNGS: Clear to auscultation bilaterally, no wheeze, no rhonchi, breath sounds equal. HEART: Without murmurs gallops or rubs, regular rate and rhythm. + left chest wall tenderness to palpation in one spot just below left breast ABDOMEN: Soft, nontender, bowel sounds positive; patient reports chronic tenderness to palpation in bilateral lower quadrants; + abdominal scar EXTREMITIES: No cyanosis or edema NEUROLOGIC: Oriented x 3, no acute motor or sensory deficits, no focal weakness. SKIN: No rash, no jaundice, no diaphoresis. Laboratory Results: Last 24 Hours Test 11/25/16 05:45 11/25/16 16:10 White Blood Count 2.64 K/uL Red Blood Count 2.42 M/uL Hemoglobin 9.3 g/dL Hematocrit 27.2 % Mean Corpuscular Volume 112.4 fL Mean Corpuscular Hemoglobin 38.4 pg Mean Corpuscular Hemoglobin Concent 34.2 g/dl RDW Standard Deviation 61.8 fL RDW Coefficient of Variation 15.4 % Platelet Count 426 K/uL Mean Platelet Volume 9.0 fL Sodium Level 145 mmol/L Potassium Level 3.2 mmol/L Chloride Level 108 mmol/L Carbon Dioxide Level 29 mmol/L Anion Gap 8.0 mmol/L Blood Urea Nitrogen 3 mg/dl Creatinine 0.52 mg/dl Est Creatinine Clear Calc Drug Dose 100.0 ml/min Estimated GFR () 146.5 Estimated GFR (Non- 126.4 BUN/Creatinine Ratio 4.8 Random Glucose 80 mg/dl Calcium Level 8.1 mg/dl Vitamin B12 Level 1041 pg/mL 25-Hydroxy Vitamin D Total 36.2 ng/ml Urine Color YELLOW Urine Appearance CLEAR Urine pH 6.5 Urine Specific [place] 1.001 Urine Protein NEG Urine Glucose (UA) NEG Urine Ketones NEG Urine Occult Blood NEG Urine Nitrite NEG Urine Bilirubin NEG Urine Urobilinogen NEG Urine Leukocyte Esterase NEG Date/Time Source Procedure Growth Status 11/25/16 16:10 Urine , Clean Catch Urine Culture Pending Received Assessment & Plan CHEST PAIN, TACHYCARDIA: -remains sinus tach on monitor -low suspicion for cardiac cause, initial CMs negative, EKG without acute ischemic changes, remains unchanged on repeat EKGs -chest pain is reproducible and pinpoint beneath left breast, most likely musculoskeletal/intercostal -CTA chest negative for PE -continued on IV fluids as thoughts that tachycardia could be due to dehydration from poor PO intake and diarrhea -check TTE -workup for infection as well HYPOKALEMIA: -likely due to GI loss from chronic diarrhea from Crohn's -Mg+ noted to be WNL -replete and recheck HYPERNATREMIA: -likely iatrogenic, switched IV fluids to half NS ANXIETY, FIBROMYALGIA: -continue home meds for now -a majority of patient's complaints could be anxiety driven -has been tried on a variety of meds over the past several months without much success due to various adverse effects/intolerances -Psych consulted; bupropion stopped, effexor dose lowered, outpatient Psych follow up advised ADRENAL INSUFFICIENCY: -continue hydrocortisone and Florinef CROHNS DISEASE: -appears to be stable and at baseline -on Humira and Imuran; humira held pending GI evaluation, patient wishes to see her GI docs and did not want consultation while in the hospital -patient reports ongoing diarrhea but reports it is chronic and no worse than baseline LEUKOPENIA: -possibly medication induced, or related to possible infection -will follow CBC -may need outpatient workup by Hem/Onc -slide for path review ordered MACROCYTIC ANEMIA: -patient denies any melena or hematochezia -check B12, folate, path review Current Inpatient Medications: Current Inpatient Medications Medications (Trade) Dose Ordered Sig/Sivakumar Route Start Time Stop Time Status Last Admin Dose Admin Ioversol (Optiray 320) 111 ml UD PRN IV 11/23/16 17:30 11/27/16 17:29 Acetaminophen (Tylenol Tab) 650 mg Q4H PRN PO 11/23/16 20:45 12/23/16 20:44 11/25/16 14:26 650 MG Ondansetron HCl (Zofran Inj) 4 mg Q6H PRN IV 11/23/16 20:45 12/23/16 20:44 11/25/16 08:29 4 MG Ketorolac Tromethamine (Toradol Inj) 15 mg Q6H PRN IV 11/23/16 21:00 11/28/16 20:59 11/25/16 14:26 15 MG Azathioprine (Imuran Tab) 100 mg DAILY PO 11/24/16 09:00 12/24/16 08:59 11/25/16 08:10 100 MG Fludrocortisone Acetate (Florinef Tab) 0.1 mg DAILY PO 11/24/16 09:00 12/24/16 08:59 11/25/16 08:11 0.1 MG Folic Acid (Folvite Tab) 0.5 mg DAILY PO 11/24/16 09:00 12/24/16 08:59 11/25/16 08:12 0.5 MG Gabapentin (Neurontin Tab) 600 mg HS PO 11/24/16 21:00 12/24/16 20:59 11/24/16 20:55 600 MG Gabapentin (Neurontin Cap) 300 mg DAILY PO 11/24/16 09:00 12/24/16 08:59 11/25/16 08:12 300 MG Hydrocortisone (Cortef Tab) 10 mg DAILY@1400 PO 11/24/16 14:00 12/24/16 13:59 11/25/16 14:22 10 MG Hydrocortisone (Cortef Tab) 20 mg QAM PO 11/24/16 09:00 12/24/16 08:59 11/25/16 08:09 20 MG Magnesium Oxide (Mag-Ox Tab) 400 mg DAILY PO 11/24/16 09:00 12/24/16 08:59 11/25/16 08:10 400 MG Multivitamins (Multivitamin Tab) 1 tab DAILY PO 11/24/16 09:00 12/24/16 08:59 11/25/16 08:09 1 TAB Nortriptyline HCl (Pamelor Cap) 75 mg HS PO 11/24/16 21:00 12/24/16 20:59 11/24/16 20:56 75 MG Valacyclovir HCl (Valtrex Tab) 500 mg DAILY PO 11/24/16 09:00 11/26/16 08:59 11/25/16 08:11 500 MG Miscellaneous Information (Order Awaiting Action) 1 ea QS N/A 11/24/16 00:00 12/24/16 00:00 Pantoprazole Sodium (Protonix Tab) 40 mg QAM PO 11/24/16 09:00 12/24/16 08:59 11/25/16 08:09 40 MG Miscellaneous (Iv Fluids Completed) 1 ea PRN PRN N/A 11/23/16 21:30 11/23/17 21:29 Zolpidem Tartrate 10 mg 10 mg HS PRN PO 11/23/16 22:30 12/23/16 22:29 11/24/16 20:54 10 MG Sodium Chloride (1/2 Nss 1000ml) 1,000 ml @ 100 mls/hr Q10H IV 11/24/16 12:00 12/24/16 11:59 11/25/16 08:30 100 MLS/HR Acetaminophen/ Butalbital/ Caffeine (Fioricet Tab) 1 tab Q4H PRN PO 11/24/16 13:15 12/24/16 13:14 11/24/16 14:41 1 TAB Venlafaxine HCl (effeXOR EXTENDED REL CAP) 37.5 mg QAM PO 11/25/16 09:00 12/25/16 08:59 11/25/16 08:11 37.5 MG Lorazepam (Ativan Tab) 1 mg BID PRN PO 11/24/16 14:15 12/24/16 14:14 Enteral Nutritional Formula (Boost Breeze Nutritional Drink) 1 box BIDM PO 11/24/16 16:45 12/24/16 16:44 11/25/16 08:13 1 BOX Potassium Chloride (Klor-Con Tab) 20 meq BID PO 11/24/16 21:00 12/24/16 20:59 11/25/16 08:12 20 MEQ Lactobacillus Acidophilus (Floranex Tab) 4 tab TIDM PO 11/25/16 07:30 12/25/16 07:29 11/25/16 14:23 4 TAB Loperamide HCl (Imodium Cap) 2 mg DAILY PRN PO 11/24/16 19:30 12/24/16 19:29
[2016-11-25 18:02] LABS: INFLUENZA A PCR Neg for Influ A (NEG); INFLUENZA B PCR Neg for Influ B (NEG)
[2016-11-25] MEDS: LOPERAMIDE HCL 2 MG CAP PO PRN (19:48)
[2016-11-25] MEDS: GABAPENTIN 600 MG TAB PO SCH (19:49)
[2016-11-25] MEDS: NORTRIPTYLINE HCL 25 MG CAP PO SCH (19:50)
[2016-11-25] MEDS: ZOLPIDEM TARTRATE 10 MG TAB PO PRN (19:52)
[2016-11-26] VITALS (7 sets, daily range): BP systolic 93–105; BP diastolic 57–70; PULSE 104–122; TEMP 36.7–37; O2SAT 95–100
[2016-11-26] MEDS: KETOROLAC TROMETHAMINE 15 MG/ML VIAL IV PRN ×3 (02:46→14:56)
[2016-11-26] MEDS: ACETAMINOPHEN 325 MG TAB PO PRN ×2 (02:47→14:57)
[2016-11-26] MEDS: SODIUM CHLORIDE 0.45% 1000ML 1,000 ML IV SCH (04:00)
[2016-11-26 05:50] LABS: HEMATOCRIT 23.5 % (37-47); IG% 0.4 %; LYMPH % 43.1 %; LYMPH ABS # 1.09 K/uL (1.2-3.4); MEAN CELL VOLUME 114.6 fL (80-100); MEAN CORPUSCULAR HEMOGLOBIN 39.5 pg (25-34); MEAN CORPUSCULAR HGB CONC 34.5 g/dl (32-36); MEAN PLATELET VOLUME 8.6 fL (7.4-10.4); MONO % 5.9 %; NEUT % 46.6 %; PLATELET COUNT 361 K/uL (130-400); RED BLOOD COUNT 2.05 M/uL (4.2-5.4); WHITE BLOOD COUNT 2.53 K/uL (4.8-10.8)
[2016-11-26 06:19] LABS: COMPLETE YES
[2016-11-26 06:22] LABS: BUN/CREATININE RATIO 2.6 (10-20); CALCIUM 7.9 mg/dl (8.5-10.1); CREATININE 0.5 mg/dl (0.60-1.20); MAGNESIUM 1.9 mg/dl (1.8-2.4); POTASSIUM 3.3 mmol/L (3.5-5.1)
[2016-11-26] MEDS: BCP'S~ORDER AWAITING ACTION SCH (08:00)
[2016-11-26] MEDS ORDERED: POTASSIUM CHLORIDE 10 MEQ TABCR PO STA (08:43)
[2016-11-26] MEDS: LOPERAMIDE HCL 2 MG CAP PO PRN (08:46)
[2016-11-26] MEDS: MAGNESIUM OXIDE 400 MG TAB PO SCH (08:47)
[2016-11-26] MEDS: AZATHIOPRINE 50 MG TAB PO SCH (08:47)
[2016-11-26] MEDS: PANTOprazole SOD 40 MG TAB PO SCH (08:47)
[2016-11-26] MEDS: FLUDROCORTISONE ACETATE 0.1 MG TAB PO SCH (08:48)
[2016-11-26] MEDS: VENLAFAXINE HCL XR 37.5 MG CAPXR PO SCH (08:49)
[2016-11-26] MEDS: MULTIVITAMIN TAB PO SCH (08:49)
[2016-11-26] MEDS: LACTOBACILLUS ACIDOPHILUS (FLORANEX) TAB PO SCH ×2 (08:50→11:55)
[2016-11-26] MEDS: POTASSIUM CHLORIDE 20 MEQ TABCR PO SCH (08:51)
[2016-11-26] MEDS: GABAPENTIN 300 MG CAP PO SCH (08:51)
[2016-11-26] MEDS: HYDROCORTISONE 10 MG TAB PO SCH ×2 (08:52→15:00)
[2016-11-26] MEDS: BOOST BREEZE NUTRITION DRINK 1 BOX PO SCH (08:52)
[2016-11-26] MEDS ORDERED: LIDODERM (LIDOCAINE) PATCH 5% TD SCH (09:00)
--- NOTE | 2016-11-26 11:16 | ECHOCARDIOGRAM REPORT ---
*NOTICE TO RECEIVING DEMOCRAT AGENCY This information is strictly Confidential and protected under [place] law. [place] law prohibits you from making any further disclosure of this information unless further disclosure is expressly permitted by the written consent of the person to whom it pertains or is authorized by law. A general authorization for the release of medical or other information is not sufficient for this purpose. Hospital accepts no responsibility if the information is made available to any other person, INCLUDING THE PATIENT. Interpretation Summary * Name: SHRUTI MONTEZ Study Date: 11/25/2016 03:29 PM BP: 97/63 mmHg * Patient Location: C.2T\S\S232\S\1 HR: 133 * : 1985 (M/d/yyyy) Gender: Female Height: 59 in * Age: 31 yrs Ethnicity: CA Weight: 89 lb * Ordering Physician: Skylar Garcia * Performed By: Katie De Jesus * * Reason For Study: SVT * BSA: 1.3 m2 * The study was technically adequate. * -- Conclusions -- * The resting echocardiogram study is normal. Procedure Details * A complete two-dimensional transthoracic echocardiogram was performed (2D, M-mode, Doppler and color flow Doppler). Left Ventricle * The left ventricle is normal in size. * There is normal left ventricular wall thickness. * Left ventricular systolic function is normal. * Ejection Fraction = 65-70%. * The left ventricular wall motion is normal. Right Ventricle * The right ventricle is normal size. * The right ventricular systolic function is normal as assessed by tricuspid annular plane systolic excursion (TAPSE) (normal >1.5 cm). Atria * The left atrial size is normal. * Right atrial size is normal. * There is no evidence of atrial septal defect, but resolution does not allow assessment for a patent foramen ovale. Mitral Valve * The mitral valve is normal. * There is no mitral valve stenosis. * Significant mitral regurgitation is absent. Tricuspid Valve * The tricuspid valve is normal. * There is no tricuspid stenosis. * Significant tricuspid regurgitation is absent. * Doppler findings do not suggest pulmonary hypertension. Aortic Valve * The aortic valve is trileaflet. * Aortic stenosis is absent. * There is no significant aortic regurgitation. Pulmonic Valve * The pulmonary valve is not well seen, but the Doppler examination is normal without significant regurgitation or stenosis. Great Vessels * The aortic root and proximal ascending aorta are normal sized. Pericardium/Pleural * There is no pericardial effusion. Great Vessels * Normal inferior vena cava diameter and respiratory variation suggests normal central venous pressure. Left Ventricular Diastolic Function * The LV diastolic function is normal. MMode 2D Measurements and Calculations IVSd 0.68 cm IVSs 1.0 cm LVIDd 3.7 cm LVIDs 2.3 cm LVPWd 0.65 cm LVPWs 1.3 cm IVS/LVPW 1.0 FS 36.9 % EDV(Teich) 57.7 ml ESV(Teich) 18.6 ml EF(Teich) 67.7 % EDV(cubed) 50.2 ml ESV(cubed) 12.6 ml EF(cubed) 74.9 % % IVS thick 52.1 % % LVPW thick 102.0 % LV mass(C)d 63.6 grams LV mass(C)dI 48.6 grams/m\S\2 LV mass(C)s 74.4 grams LV mass(C)sI 56.9 grams/m\S\2 CO(Teich) 4.3 l/min CI(Teich) 3.3 l/min/m\S\2 SV(Teich) 39.1 ml SI(Teich) 29.9 ml/m\S\2 CO(cubed) 4.1 l/min CI(cubed) 3.1 l/min/m\S\2 SV(cubed) 37.6 ml SI(cubed) 28.8 ml/m\S\2 Ao root diam 1.1 cm Ao root area 0.91 cm\S\2 LA dimension 2.3 cm asc Aorta Diam 2.4 cm LA/Ao 2.2 LVOT diam 1.8 cm LVOT area 2.6 cm\S\2 LVAd ap4 17.6 cm\S\2 LVLd ap4 5.8 cm EDV(MOD-sp4) 45.0 ml LVAs ap4 9.4 cm\S\2 LVLs ap4 4.6 cm ESV(MOD-sp4) 16.8 ml EF(MOD-sp4) 62.7 % LVAd ap2 18.6 cm\S\2 LVLd ap2 6.5 cm EDV(MOD-sp2) 44.2 ml LVAs ap2 8.4 cm\S\2 LVLs ap2 4.4 cm ESV(MOD-sp2) 13.6 ml EF(MOD-sp2) 69.2 % CO(MOD-sp4) 3.1 l/min CI(MOD-sp4) 2.4 l/min/m\S\2 SV(MOD-sp4) 28.2 ml SI(MOD-sp4) 21.6 ml/m\S\2 CO(MOD-sp2) 3.3 l/min CI(MOD-sp2) 2.6 l/min/m\S\2 SV(MOD-sp2) 30.6 ml SI(MOD-sp2) 23.4 ml/m\S\2 Doppler Measurements and Calculations MV E max diego 91.7 cm/sec MV A max diego 63.5 cm/sec MV E/A 1.4 MV dec time 0.13 sec Ao V2 max 117.3 cm/sec Ao max PG 5.5 mmHg Ao max PG (full) 10 mmHg FELIPE(V,A) 2.4 cm\S\2 FELIPE(V,D) 2.4 cm\S\2 LV V1 max PG 4.5 mmHg LV V1 mean PG 1.8 mmHg LV V1 max 106.1 cm/sec LV V1 mean 59.3 cm/sec LV V1 VTI 19.0 cm SV(LVOT) 50.2 ml SI(LVOT) 38.4 ml/m\S\2 PA V2 max 74.2 cm/sec PA max PG 2.2 mmHg TR max diego 214.6 cm/sec
[2016-11-26 13:30] LABS: LYME DISEASE AB IGG NEG (NEG); LYME DISEASE AB IGM NEG (NEG)
[2016-11-26] MEDS: ONDANSETRON INJ 2 MG/ML 2 ML VIAL IV PRN (14:58)
--- NOTE | 2016-11-26 16:53 | Discharge Instructions ---
Discharge Instructions Admission Reason for Admission: Chest Pain,Hypokalemia Discharge Discharge Diagnosis / Problem: Chest pain, hypokalemia Discharge Goals Goal(s): Diagnostic testing Activity Recommendations Activity Limitations: as noted below Lifting Limitations: gradually increase as tolerated . Instructions / Follow-Up Instructions / Follow-Up Please see Dr. Lewis on December 01 at 8:50AM for hospital follow up Please have labs drawn on November 30 Please follow up with Rheumatology in the next 1-2 months Please follow up with GI as scheduled Please follow up with Psychiatry at [facility], you will be contacted regarding your scheduled appointment there You may take probiotics (OTC) with meals Ok to take imodium as needed for diarrhea according to package instructions Current Hospital Diet Patient's current hospital diet: Low Fiber Diet, Low Lactose Diet Discharge Diet Recommended Diet: Low Fiber Diet, Low Lactose Diet Pending Studies Studies pending at discharge: yes List of pending studies: Labs to check folate level were pending upon discharge Medical Emergencies . Who to Call and When: Medical Emergencies: If at any time you feel your situation is an emergency, please call 911 immediately. . Non-Emergent Contact Non-Emergency issues call your: Primary Care Provider . . "Provider Documentation" section prepared by Skylar Garcia. VTE Core Measure Inpt VTE Proph given/why not?: SCD's
[2016-11-26] MEDS ORDERED: MCRK20 PO (17:12)
[2016-11-26] MEDS ORDERED: LDDP5 TD (17:12)
[2016-11-26] MEDS ORDERED: EFFSR375 PO (17:12)
[2016-11-26] MEDS ORDERED: ATV/1 PO (17:12)
[2016-11-26] MEDS ORDERED: Labs (17:15)
[2016-12-01 15:17] LABS: EBV EARLY ANTIGEN AB <0.91 INDEX; EPSTEIN BARR VIR CAPSID IGG 3.49 INDEX
--- NOTE | 2016-12-07 08:32 | Discharge Summary ---
Discharge Summary Admission Date: Nov 23, 2016 at 20:51 Discharge Date: Nov 26, 2016 Discharge Disposition: Home Principal Diagnosis: Chest pain, diarrhea, anemia, neutropenia, sinus tachycardia Pending Studies/Follow-Up: Follow up CBC, possible hematology referral Medication Reconciliation New Medications: [Labs] () For labs CBC and Basic metabolic profile to be drawn on Wednesday, November 30, 2016. Please send results to patients PCP Dr. Lewis. Lidocaine (Lidocaine) 1 Patch Tdsy 1 PATCH TD QAM, #7 PATCH Potassium Chloride (Klor-Con M20) 20 Meq Tabcr 20 MEQ PO BID, #14 TABS Venlafaxine HCl (Venlafaxine HCl ER) 37.5 Mg Capcr 37.5 MG PO QAM, #30 TABS Changed Medications: Lorazepam (Ativan) 1 Mg Tab 1 MG PO BID PRN for Anxiety, #10 TAB (Changed from: DAILY) Continued Medications: Acetamin/Butalbital/Caffeine (Fioricet) 1 Ea Tab 2 TABS PO Q6H PRN for Pain, TAB Adalimumab (Humira) 40 Mg/0.8 Ml Kit 40 MG SC Q2WEEK Azathioprine (Imuran) 50 Mg Tab 100 MG PO DAILY Docusate Sodium (Colace) 100 Mg Cap 100 MG PO UD PRN for Constipation, CAP Fluconazole (Diflucan) 150 Mg Tab 150 MG PO MONTHLY, TAB Fludrocortisone Acetate (Florinef) 0.1 Mg Tab 0.1 MG PO DAILY, TAB Folic Acid (Folvite) 1 Mg Tab 0.5 MG PO DAILY, TAB Gabapentin (Neurontin) 300 Mg Cap 300 MG PO DAILY, CAP Gabapentin (Neurontin) 100 Mg Cap 600 MG PO HS, CAP Hydrocortisone (Cortef) 5 Mg Tab 20 MG PO QAM, TAB Hydrocortisone (Cortef) 5 Mg Tab 10 MG PO AFTERNOON, TAB Levonorgestrel & Eth Estradiol (Levora 0.15/30-28) 1 Tab Tab 1 TAB PO DAILY for 28 Days, #28 TAB 11 Refills Lidocaine Hcl (Mouth-Throat) (Lidocaine Viscous) 2 % Maribell 10 ML PO UD PRN for Pain, ML SWISH AND SPIT DIRECTED IF NEEDED FOR PAIN Magnesium Oxide (Mag-Ox) 400 Mg Tab 400 MG PO DAILY, TAB Multivitamin (Multivitamin) Tab 1 TAB PO DAILY, TAB Nortriptyline Hcl (Pamelor) 75 Mg Cap 75 MG PO HS, CAP Omeprazole (Prilosec) 40 Mg Capcr 40 MG PO DAILY, CAP Ondasetron Odt (Zofran Odt) 4 Mg Tab 4 MG SL Q8 PRN for Nausea, TAB ALLOW TABLET TO DISSOLVE ON TONGUE Potassium Chloride Microencaps (Potassium Chloride Er) 20 Meq Tab 20 MEQ PO DAILY, TAB Valacyclovir (Valtrex) 500 Mg Tab 500 MG PO DAILY, TAB TAKE THIS MEDICATION ONCE DAILY AT THE SAME HOUR EVERY DAY Zolpidem Tartrate (Zolpidem Tartrate) 10 Mg Tab 10 MG PO HS PRN for Sleep, TAB Discontinued Medications: Bupropion (Wellbutrin) 75 Mg Tab 75 MG PO BID, TAB Oxycodone/Acetaminophen 5MG/325MG (Percocet 5MG/325MG) Tab 1 TAB PO Q4H PRN for Moderate Pain Venlafaxine Hcl (Effexor) 75 Mg Tab 75 MG PO DAILY, TAB Admission Information HPI (per Admitting provider): 31 year old female who presents to the ER with chest pain. Patient reports she has been experiencing chest pain for the past one month since starting Effexor. Patient has had multiple medication changes for fibromyalgia over the past several months. She reports she had been being teated with narcotics which were weaned off and she was place on Cymbalta. She reports she felt good while taking that medicine however it caused severe bloody diarrhea. Patient was then switched to Zoloft which caused her to be very aggressive. She was then placed on Effexor. She denies any GI side effects from the Effexor but she reports that since she started taking it she has had left sided chest pain. She reports the pain has been constant. At its worst she rates the pain #10/10. She reports the pain is worse when she walks and she can reproduce the pain with pressing the left side of her chest. She reports associated shortness of breath. She has had extreme fatigue. She reports nausea and poor appetite and a few episodes of vomiting. No hematemesis or coffee ground emesis. She has chronic diarrhea from Crohn's which has been at baseline. No bloody diarrhea. She has lightheadedness and dizziness with standing too quickly. No syncopal events. No fever or chills. She denies any urinary symptoms. In the ER, patient is found have K+ 2.8. D. Dimer was positive and CT chest was negative for PE. She was tachycardic in the 150s on arrival and HR is currently in the 120s after IVF. Troponin is negative and EKG does not show any acute ST changes. Patient was treated with potassium replacement and IVF. Physical Exam (per Admitting): General Appearance: no apparent distress Head: normocephalic Eyes: normal inspection ENT: hearing grossly normal Neck: supple, no JVD Respiratory/Chest: lungs clear, normal breath sounds, no respiratory distress, + pertinent finding (left sided chest wall tenderness) Cardiovascular: no edema, no murmur, + tachycardia (regular rhythm) Abdomen/GI: normal bowel sounds, non tender, soft Extremities/Musculoskelatal: normal inspection, no calf tenderness Neurologic/Psych: no motor/sensory deficits, alert, normal mood/affect Skin: normal color, warm/dry Hospital Course CHEST PAIN, TACHYCARDIA: -remains sinus tach on monitor -low suspicion for cardiac cause, initial CMs negative, EKG without acute ischemic changes, remains unchanged on repeat EKGs -chest pain is reproducible and pinpoint beneath left breast, most likely musculoskeletal/intercostal -CTA chest negative for PE -continued on IV fluids as thoughts that tachycardia could be due to dehydration from poor PO intake and diarrhea -TTE normal, intact EF, no wall motion abnormalities -workup for infection negative as well; urine and blood cultures negative, c diff negative HYPOKALEMIA: -likely due to GI loss from chronic diarrhea from Crohn's -Mg+ noted to be WNL -replete and recheck -continue supplement on discharge and recheck labs next week HYPERNATREMIA: -likely iatrogenic, switched IV fluids to half NS ANXIETY, FIBROMYALGIA: -continue home meds for now -a majority of patient's complaints could be anxiety driven -has been tried on a variety of meds over the past several months without much success due to various adverse effects/intolerances -Psych consulted; bupropion stopped, effexor dose lowered, outpatient Psych follow up advised ADRENAL INSUFFICIENCY: -continue hydrocortisone and Florinef CROHNS DISEASE: -appears to be stable and at baseline -on Humira and Imuran; humira held pending GI evaluation, patient wishes to see her GI docs and did not want consultation while in the hospital -patient reports ongoing diarrhea but reports it is chronic and no worse than baseline -advised patient to follow up with her GI as outpatient LEUKOPENIA: -possibly medication induced, or related to possible infection -follow CBC -may need outpatient workup by Hem/Onc -slide for path review ordered MACROCYTIC ANEMIA: -patient denies any melena or hematochezia -normal B12, folate PHYSICAL EXAM ON DAY OF DISCHARGE: GENERAL: Patient is in no acute distress. HEENT: No acute trauma, normocephalic, mucous membranes moist, no nasal congestion, no scleral icterus. NECK: No stridor, trachea is midline. LUNGS: Clear to auscultation bilaterally, no wheeze, no rhonchi, breath sounds equal. HEART: Without murmurs gallops or rubs, slightly tachycardic ABDOMEN: Soft, nontender, bowel sounds positive EXTREMITIES: No cyanosis or edema NEUROLOGIC: Oriented x 3, no acute motor or sensory deficits, no focal weakness. SKIN: No rash, no jaundice, no diaphoresis. Total time spent on discharge = 35 This includes examination of the patient, discharge planning, medication reconciliation, and communication with other providers. Discharge Instructions See patient instructions
== END 2016-11-26 18:45 | disposition home or self-care (01) ==
LOC: ENRESERVTM → ENRESERVDT → C.EDB 16:28 → C.2T 20:51
PROVIDERS: ADMIT Family Medicine; ATTEND Internal Medicine
DX: R07.9 Chest pain, unspecified (principal); E87.6 Hypokalemia; F32.9 Major depressive disorder, single episode, unspecified; F41.1 Generalized anxiety disorder; E87.0 Hyperosmolality and hypernatremia; D72.819 Decreased white blood cell count, unspecified; D53.9 Nutritional anemia, unspecified; I47.1 Supraventricular tachycardia; E27.40 Unspecified adrenocortical insufficiency; M79.7 Fibromyalgia; K50.90 Crohn's disease, unspecified, without complications; A60.09 Herpesviral infection of other urogenital tract; Z79.899 Other long term (current) drug therapy; Z79.52 Long term (current) use of systemic steroids; Z82.69 Family history of other diseases of the musculoskeletal system and connective tissue